=== PATIENT | male | born 1945 | race Caucasian/White ===

== ENCOUNTER → 2016-11-14 | Outpatient (CLI) | payer MEDICARE ==
[~2016-11-14] MED LIST: ACTOS PO; ASPIRINEC PO; ATENOLOL PO; BENAZEPRIL PO; FISH OIL 1,0001 CAP PO; GLUCOTROL PO; HCTZ PO; METFORMIN PO; NORVASC PO; VIT E PO; VITAMIN C PO; ZOCOR PO
--- NOTE | ~2016-11-14 | MR2 ---
[facility]. [facility] A Service of [facility] & [facility] RADIOLOGY TEXT RESULTS PATIENT: SELWYN FAJARDO LOCATION: [facility] : 47 UNIT #: [id number] AGE: [address]: Benjy Seaman MD SEX: M ORDER DR: [id number] [address] [id number] O MR#: [id number] Acc #: [id number] NAME: SELWYN FAJARDO : 1945 SEX: M STUDY DATE/TIME: 11/14/2016 9:20 UNIT: [facility] ROOM: STUDY DESCRIPTION: MR Abdomen WWo Cont Attending Physician: Benjy Seaman M.D. Referring Physician: Benjy Seaman M.D. Ordering Physician: Benjy Seaman M.D. Primary Care Physician: Benjy Seaman M.D. MRI CENTER REPORT This report is preliminary unless electronic signature is present. EXAM MRI of the kidneys with and without contrast, 11/14/2016. INDICATIONS 71-year-old male who had a CT scan at an outside facility, 11/07/2016, demonstrating an enlarging apparently enhancing nodule arising from the upper pole left kidney, measuring 1.7 cm. MRI requested for further assessment. No history of malignancy. Oxygen requiring patient. TECHNIQUE Multiplanar, multisequence MRI of the abdomen with attention to the kidneys was performed. Imaging was performed before and after the uneventful intervenous administration of 20 mL MultiHance contrast material. COMPARISON Correlation is made with report of the prior outside CT scan. We have no images for direct comparison. FINDINGS MRI ABDOMEN: No pleural effusion. Visualized pancreas atrophic with preservation of expected T1 signal. No evidence of acute pancreatitis. Gallbladder surgically absent. No intra- or extrahepatic biliary ductal dilatation. No organomegaly. No significant fatty infiltration of the liver or depositional disease. Please note the entirety of the abdomen is not included in the field of view on all series, as this examination was tailored to evaluate the kidneys. Included spleen, pancreas, and adrenal glands are unremarkable. Liver demonstrates no enhancing mass or abnormal enhancement. Aorta demonstrates atherosclerotic change, but no aneurysm or dissection. Kidneys demonstrate no hydronephrosis or distinct inflammatory change and STS. [facility] A Service of [facility] & [facility] RADIOLOGY TEXT RESULTS PATIENT: SELWYN FAJARDO LOCATION: [facility] : 47 UNIT #: [id number] AGE: [address]: Benjy Seaman MD SEX: M ORDER DR: enhance symmetrically. There are 3 cysts in the right kidney, the largest of which measures 11 mm in the anterolateral midpole. No enhancing mass on the right. On the left, there is some an exophytic mass arising from the lateral upper pole left kidney. It measures 1.5 cm. Signal and enhancement characteristics are most characteristic of a benign cyst. No enhancement identified on MRI. The left kidney is otherwise unremarkable. There is no adenopathy. Included bowel unremarkable. Marrow signal unremarkable. IMPRESSION 1. The exophytic mass arising from the upper pole left kidney has imaging features most characteristic of a benign cyst. It measures 1.5 cm. No evidence of enhancement on MRI. 2. There are 3 benign cysts in the right kidney; the largest measures 11 mm. 3. Surgical absence of the gallbladder. 4. Otherwise negative. Dictated by... Leonid Stiles M.D. THIS IS AN ELECTRONICALLY VERIFIED REPORT Leonid Stiles M.D. at 11/15/2016 5:09 PM Luis TD: 11/15/2016 13:48 JOB #: [id number] MRI CENTER REPORT Page 1 of 1
[2016-11-14 10:40] LABS: POC - CREATININE 0.88 mg/dL (0.64-1.27); POC - GFR >60.0 mL/min (>60)
== END | disposition home or self-care (01) ==
LOC: SMRI 08:38
PROVIDERS: Family Medicine
DX: N28.89 Other specified disorders of kidney and ureter (principal); Q61.02 Congenital multiple renal cysts; Z90.49 Acquired absence of other specified parts of digestive tract
CPT/HCPCS: 74183; 82565; A9581